=== PATIENT | female | born 1975 | race Caucasian/White ===

== ENCOUNTER 2022-05-28 21:35 | Emergency (ER) | payer MEDICAID ==
[~2022-05-28] VITALS: Ht 152.4 cm; Wt 64.1 kg
[2022-05-29] MEDS ORDERED: IBUP-2030 MT (00:30)
[2022-05-29] MEDS ORDERED: KETOROLAC 60MG/2ML VIAL IM ONE (00:45)
[2022-05-29 00:48] VITALS: BP 130/66
== END 2022-05-29 00:48 | disposition home or self-care (01) ==
LOC: ER 21:35
DX: M25.561 Pain in right knee (principal); Z91.81 History of falling
CPT/HCPCS: 73562; 81025; 96372; 99283; J1885